=== PATIENT | male | born 1995 | race African-American/Black ===

== ENCOUNTER 2017-08-13 14:24 | Emergency (ER) | payer OTHER ==
[2017-08-13] MEDS ORDERED: Ibuprofen TAB* 400 MG PO ONE (16:26)
[2017-08-13 16:33] VITALS: BP 137/84
[2017-08-13] MEDS ORDERED: Albuterol/Ipratropium NEB.SOL* Albuterol 2.5 MG/Ipratropium 0.5 MG 3 ML INH ONE (16:39)
--- NOTE | 2017-08-13 16:41 | UC ---
Lanny Maurer Thomas, scribed for Magda Saenz MD on 08/13/17 at 1640 . Respiratory Complaint HPI - HPI Summary HPI Summary: The patient is a 22 year old male presenting to Urgent Care complaining of a head cold, cough, and sinus pressure and headache for the last month. The sinus drainage has green production. The pain is rated 3/10. He reports a fever at 100.3 yesterday - responsive to Motrin. No antipyretic today. He has also been taking Zyrtec daily. Pt with wheezing and cough. h/o exercise induced asthma. . Patient Patient denies ear pain, nausea, vomiting, and diarrhea. No sick contacts.He denies recent sick contacts. He did not get the Flu shot this year. He is a current smoker. PMHx includes asthma and he has never been hospitalized for his asthma. Patients medication reviewed this visit. - History of Current Complaint Chief Complaint: UCRespiratory Stated Complaint: SINUS ISSUE FEVER Time Seen by Provider: 08/13/17 16:25 Hx Obtained From: Patient Onset/Duration: Lasting Weeks - onset last month, Still Present Timing: Intermittent Episodes Severity Currently: Moderate Pain Intensity: 3 Pain Scale Used: 0-10 Numeric Character: Cough: Productive, Sputum Description: - green Alleviating Factors: Nothing Associated Signs And Symptoms: Positive: Fever, Nasal Congestion, Sinus Discomfort - Allergies/Home Medications Allergies/Adverse Reactions: Allergies Allergy/AdvReac Type Severity Reaction Status Date / Time No Known Allergies Allergy Verified 08/13/17 14:50 PMH/Surg Hx/FS Hx/Imm Hx Previously Healthy: No - NEGATIVE: DM Respiratory History: Asthma - Surgical History Surgical History: None - Family History Known Family History: Positive: Hypertension - Social History Occupation: Employed Full-time Lives: With Family Alcohol Use: None Substance Use Type: None Smoking Status (MU): Light Every Day Tobacco Smoker Type: Cigars Amount Used/How Often: One per day Length of Time of Smoking/Using Tobacco: 2 years Have You Smoked in the Last Year: Yes - Immunization History Vaccination Up to Date: Yes Review of Systems Constitutional: Fever, Other - decreased appetitie Skin: Negative Eyes: Negative ENT: Nasal Discharge, Sinus Congestion, Sinus Pain/Tenderness Respiratory: Cough Cardiovascular: Negative Neurological: Headache Is Patient Immunocompromised?: No All Other Systems Reviewed And Are Negative: Yes Physical Exam Triage Information Reviewed: Yes Appearance: Well-Appearing, No Pain Distress, Well-Nourished Vital Signs: Initial Vital Signs Temp 98.4 F 08/13/17 14:44 Pulse 88 08/13/17 14:44 Resp 18 08/13/17 14:44 BP 152/79 08/13/17 14:44 Pulse Ox 100 08/13/17 14:44 Vital Signs Reviewed: Yes Eye Exam: Normal Eyes: Positive: Conjunctiva Clear ENT: Positive: Other - TM x 2 clear turbinated inflammed and boggy + PND mmoist + ttp max sinuses Dental Exam: Normal Neck exam: Normal Neck: Positive: Supple, Nontender, No Lymphadenopathy Respiratory Exam: Normal Respiratory: Positive: Wheezing - diffuse wheezse, coarse coug + right rhonci no accessory muscle use speaks full, easy sentences Cardiovascular Exam: Normal Cardiovascular: Positive: RRR, No Murmur Abdominal Exam: Normal Abdomen Description: Positive: Nontender, No Organomegaly, Soft Bowel Sounds: Positive: Present Musculoskeletal Exam: Normal Neurological Exam: Normal Neurological: Positive: Alert Psychological Exam: Normal Psychological: Positive: Normal Response To Family Skin Exam: Normal UC Diagnostic Evaluation - Laboratory O2 Sat by Pulse Oximetry: 100 Diagnostic Studies Comment: CXR. Interpreted by radiologist. Impression: No active disease. Dr. Saenz has viewed this report. Re-Evaluation - Re-Evaluation First Eval Change: Improved - wheezing resolved following neb Respiratory Course/Dx - Course Course Of Treatment: Pt presents with sinus congestion, wheeze, cough and sinus pressure with fevers. duoneb. CXR. Influzenza A is positive. motrin. secretion precaution. work note. smoking cessation discussed - Differential Dx/Diagnosis Provider Diagnoses: influenza. sinusitis Discharge - Discharge Plan Condition: Stable Disposition: HOME Prescriptions: Albuterol HFA INHALER* [Ventolin HFA Inhaler*] 1 puff INH Q4H PRN #1 mdi PRN Reason: wheeze Azithromycin TAB* [Zithromax TAB (Z-PASTORA) 250 mg #6 tabs] 2 tab PO .TODAY, THEN 1 DAILY #1 pastora Oseltamivir Phosphate [Tamiflu] 75 mg PO BID #10 cap Forms: *Work Release Referrals: Sultana Guerra NP [Primary Care Provider] - Additional Instructions: - STay well hydrated. Drink plenty of non-alcoholic, non-caffinated beverages - take antibiotics 2 times a day as prescribed - After you have been on antibiotics for 2 days - change your toothbrush and your pillowcase. These infections are spread by secrtions - do NOT share eating or drinking utensils - clean items you share with other people such as iphone, computer mouse, TV remote, etc - USe inhaler - 2 puffs every 4 hours today, then eveyr 4 hours as needed - Take tamiflu 2 times a day to treat your influenza - Okay to use over the counter medication for cough - Alternate ibuprofen (Advil, motrin) 600mg and tylenol every 3 hours for pain or fever. - Contact your doctor or return with questions or concerns The documentation as recorded by the Lanny wesley Thomas accurately reflects the service I personally performed and the decisions made by , Magda Saenz MD.
--- NOTE | 2017-08-13 17:31 | RAD ---
INDICATION: Cough and fever COMPARISON: None TECHNIQUE: PA and lateral dual-energy views were obtained. FINDINGS: Bones/Soft Tissues: There are no acute bony findings. Cardiomediastinal: The cardiomediastinal silhouette is normal. Lungs: There are no infiltrates. Pleura: There are no pleural effusions. Other: None IMPRESSION: NO ACTIVE DISEASE
== END 2017-08-13 17:57 | disposition home or self-care (01) ==
LOC: UCEAST 14:24
DX: J11.1 Influenza due to unidentified influenza virus with other respiratory manifestations (principal); J32.9 Chronic sinusitis, unspecified; J45.909 Unspecified asthma, uncomplicated; Z72.0 Tobacco use
CPT/HCPCS: 71020; 87502; 99212; A9270-GY; G0463

== ENCOUNTER 2019-03-25 14:00 | Emergency (ER) | payer OTHER ==
[2019-03-25 15:34] VITALS: BP 145/97
--- NOTE | 2019-03-25 16:39 | UC ---
Shoulder Pain HPI - HPI Summary HPI Summary: PATIENT HAS HAD PERSISTENT RIGHT SHOULDER PAIN FOR THE PAST 2 WEEKS AFTER SLEEPING ON HIS RIGHT SIDE WITH HIS RIGHT ARM OVER HIS HEAD. PAIN HAS BEEN WAKING HIM UP IN THE MIDDLE OF THE NIGHT. HE TOOK TYLENOL YESTERDAY WHICH TOOK THE EDGE OFF A LITTLE BIT. NO NUMBNESS, TINGLING OR WEAKNESS. - History of Current Complaint Chief Complaint: UCUpperExtremity Stated Complaint: R SHOULDER PAIN Time Seen by Provider: 03/25/19 15:54 Hx Obtained From: Patient Onset/Duration: Sudden Onset, Lasting Weeks, Still Present Timing: Constant Severity Initially: Moderate Severity Currently: Moderate Location Of Pain: Is Discrete @ - RIGHT SHOULDER Pain Intensity: 7 Pain Scale Used: 0-10 Numeric Character: Sharp Aggravating Factor(s): Movement Alleviating Factor(s): Rest, OTC Meds Associated Signs And Symptoms: Positive: Negative Related History: Dominant Hand Right - Allergies/Home Medications Allergies/Adverse Reactions: Allergies Allergy/AdvReac Type Severity Reaction Status Date / Time No Known Allergies Allergy Verified 03/25/19 15:34 PMH/Surg Hx/FS Hx/Imm Hx - Additional Past Medical History Additional PMH: ALLERGIES - Surgical History Surgical History: None - Family History Known Family History: Positive: Hypertension - Social History Alcohol Use: Occasionally Substance Use Type: Marijuana Smoking Status (MU): Former Smoker Type: Cigars Amount Used/How Often: One per day Length of Time of Smoking/Using Tobacco: 2 years Have You Smoked in the Last Year: Yes - Immunization History Vaccination Up to Date: Yes Review of Systems All Other Systems Reviewed And Are Negative: Yes Constitutional: Positive: Negative Skin: Positive: Negative Respiratory: Positive: Negative Cardiovascular: Positive: Negative Gastrointestinal: Positive: Negative Musculoskeletal: Positive: Arthralgia, Decreased ROM Physical Exam Triage Information Reviewed: Yes Appearance: Well-Appearing, No Pain Distress Vital Signs: Initial Vital Signs Temp 98.9 F 03/25/19 15:31 Pulse 100 03/25/19 15:31 Resp 18 03/25/19 15:31 BP 145/97 03/25/19 15:31 Pulse Ox 100 03/25/19 15:31 Vital Signs Reviewed: Yes Eyes: Positive: Conjunctiva Clear ENT: Positive: Hearing grossly normal Neck: Positive: Supple Respiratory: Positive: No respiratory distress, No accessory muscle use Cardiovascular: Positive: Pulses Normal Abdomen Description: Positive: Soft Musculoskeletal: Positive: No Edema, ROM Limited @ - RIGHT SHOULDER, Other: - TTP DIFFUSELY OVER RIGHT SHOULDER. NO FOCAL BONY TENDERNESS. POSITIVE EMPTY CAN. NEG MATOS Neurological: Positive: Alert, Muscle Tone Normal Psychological: Positive: Age Appropriate Behavior Skin: Negative: Rashes Diagnostics - Radiology RIGHT SHOULDER XRAYS Radiology Interpretation Completed By: Radiologist Summary of Radiographic Findings: 1. Normal acromioclavicular and glenohumeral joint alignment. 2. Negative for fracture or suspicious focal osseous lesions. 3. Small inferior acromial bone spur. Correlate clinically for potential impingement syndrome. 4. Negative for calcific tendinopathy or abnormal soft tissue contour. Shoulder Course/Dx - Differential Dx/Diagnosis Provider Diagnosis: Impingement syndrome of right shoulder Discharge - Sign-Out/Discharge Documenting (check all that apply): Patient Departure All imaging exams completed and their final reports reviewed: Yes - Discharge Plan Condition: Stable Disposition: HOME Prescriptions: Ibuprofen TAB* [Motrin TAB* 600 MG] 1 tab PO Q6H PRN #30 tab PRN Reason: Pain Patient Education Materials: Shoulder Impingement Syndrome (ED) Referrals: Sultana Guerra NP [Primary Care Provider] - If Needed Fariba Biggs MD [Medical Doctor] - 1 Week Additional Instructions: XRAY TODAY NEGATIVE FOR FRACTURE OR DISLOCATION BUT DOES SHOW A BONE SPUR WHICH MAY BE CAUSING SOME IMPINGEMENT. WEAR THE SLING NEEDED FOR DISCOMFORT. TAKE IBUPROFEN EVERY 6 HOURS NEEDED. REST, ICE. CALL ORTHOPEDICS FIRST THING IN THE MORNING TO SCHEDULE AN APPOINTMENT IN THE NEXT 1-2 WEEKS FOR REEVALUATION.. - Billing Disposition and Condition Condition: STABLE Disposition: Home
== END 2019-03-25 17:00 | disposition home or self-care (01) ==
LOC: UCEAST 14:00
DX: M75.41 Impingement syndrome of right shoulder (principal); Z87.891 Personal history of nicotine dependence
CPT/HCPCS: 99212; G0463